=== PATIENT | male | born 1970 | race Two or more races ===

== ENCOUNTER 2019-08-17 17:56 | Emergency (ER) | payer MEDICAID, OTHER ==
[~2019-08-17] VITALS: Ht 160 cm; Wt 86.2 kg
[2019-08-18 00:04] VITALS: BP 118/56
== END 2019-08-18 01:48 | disposition home or self-care (01) ==
LOC: ER 17:56
DX: J18.9 Pneumonia, unspecified organism (principal)
CPT/HCPCS: 71046